=== PATIENT | male | born 1940 | race Caucasian/White ===

== ENCOUNTER → 2020-06-25 | Outpatient (CLI) | payer MEDICARE, BC ==
[~2020-06-25] MED LIST: CARAFATE1 GM PO; HYDROCODON-ACE1 EAC8 PO; LIPITOR40 MG PO; LISINOPRIL2.5 MG PO; LOPRESSOR50 MG PO; LOW DOSE ASPIRI81 M1 PO; MIRALAX119 GM PO; PREDNISONE 5 MG5 M1 PO; PROTONIX40 M4 PO; VITAMIN B-121000 MC2 PO; ZETIA10 MG PO
== END ==
LOC: M.PC 11:10
PROVIDERS: ATTEND Physical Medicine & Rehabilitation
DX: M47.816 Spondylosis without myelopathy or radiculopathy, lumbar region (principal); M51.36 Other intervertebral disc degeneration, lumbar region; Z79.899 Other long term (current) drug therapy

== ENCOUNTER → 2020-06-26 | Outpatient (CLI) | payer MEDICARE, BC | LOC: M.MRI 14:27 | PROVIDERS: ATTEND Physical Medicine & Rehabilitation | DX: M51.36 Other intervertebral disc degeneration, lumbar region (principal); M47.816 Spondylosis without myelopathy or radiculopathy, lumbar region ==